=== PATIENT | female | born 1960 | race Caucasian/White ===

== ENCOUNTER 2022-06-19 15:19 | Outpatient (CLI) | payer MEDICAID, SELFPAY ==
--- NOTE | 2022-06-19 14:45 | MR_ITS ---
[address] [address] Phone:?[phone] Fax:?[phone] Referring Physician Information: Milo Coleman M.D. [id number] [facility] [address] Phone:?[phone] Fax:?[phone] Patient:Shawnee Gonzales D.O.B:?1960 Sex:?Female Phone:?[phone] [facility] MRN:?[id number] Exam Date:?06/19/2022 ? EXAM: MRI of the LEFT SHOULDER, without contrast CLINICAL INFORMATION: Female, 61 years old, with shoulder pain INDICATION: Evaluate rotator cuff PRIOR SURGERY: None reported. PLAIN FILMS: None available. COMPARISONS: Shoulder MRI 06/02/2016 TECHNICAL INFORMATION: Using a 1.5T MR scanner and a localizing surface coil: Coronals: PD, T2FS Sagittals: PDFS, T2 Axials: PD, PDFS SEDATION: None CONTRAST: None FINDINGS: Bones: Proximal humerus: Deformity of the greater tuberosity conspicuous than the prior exam, in keeping with prior healed greater tuberosity fracture. Patchy degenerative marrow edema in the humeral head with cystic change in the greater tuberosity, nonspecific. Glenoid: No fracture or marrow edema/pathology. No osseous Bankart lesion. Rotator cuff and muscles/tendons: Supraspinatus: Redemonstrated appearance of supraspinatus tendon tearing with broad-based partial undersurface and articular sided tearing of the mid to posterior distal tendon measuring 18 mm in AP dimension (sagittal series 8 image 8). Tearing appears to follow-up to two thirds tendon thickness, overall similar appearance of the prior exam, with bursal sided fibers appear intact. No muscle belly atrophy. Infraspinatus: Mild to moderate infraspinatus tendinosis without rotator cuff tear or muscle belly atrophy. Teres minor: No tendinopathy, tear or atrophy. Subscapularis: Mild subscapularis tendinosis without rotator cuff tear. Deltoid: No strain or atrophy. Coracoacromial arch: Acromion morphology: The acromion has type II morphology. No discrete subacromial osseous spur or os acromiale. Acromiohumeral space: The acromiohumeral space is mildly narrowed measuring 5 mm. Coracohumeral space: The coracohumeral space is within normal limits. Acromioclavicular joint: Joint: Mild AC joint arthrosis without impinging inferior osteophytosis. Ligaments: Coracoclavicular ligaments are intact. Bursae: Subacromial-subdeltoid: Trace subacromial bursitis. Subcoracoid: No convincing subcoracoid bursal thickening/bursitis. Biceps tendon: The long head of the biceps tendon is present within the bicipital groove. The intra-articular and extra-articular segments are intact without tendinosis, tenosynovitis, or displacement. Glenohumeral joint: Effusion/cyst: Small to moderate-sized glenohumeral joint effusion with synovitis. Articular cartilage: Humeral head: Chondromalacia or chondral signal heterogeneity of the humeral head articular cartilage without distinct chondral defect. Glenoid: No osteochondral abnormalities. Loose bodies: Low signal intensity body within the axillary pouch measuring 10 x 6 mm. Labrum:?Circumferential degenerative fraying and degeneration of the glenoid labrum. No paralabral ganglion cyst is identified. Inferior glenohumeral ligament/axillary pouch:?Intact. The axillary pouch is normal in thickness and signal. No evidence of adhesive capsulitis or capsular injury. IMPRESSION: 1. Partial-thickness intrasubstance and deep surface tearing of the supraspinatus is overall similar in appearance to the prior exam, without full- thickness tear identified. No muscle belly atrophy. 2. Mild to moderate infraspinatus, and mild subscapularis tendinosis without rotator cuff tear. 3. Chronic deformity of the greater tuberosity in keeping with chronic healed fracture. 4. Circumferential degenerative fraying and degeneration of the glenoid labrum. 5. Chondromalacia of the humeral head articular cartilage without distinct chondral defect. Small to moderate-sized glenohumeral joint effusion with synovitis. Intra-articular body within the axillary recess measuring 10 x 6 mm. 6. Mild narrowing of the acromiohumeral space with trace subacromial bursitis. KME Electronically signed on 06/22/2022 7:32:00 PM by Fabiola Underwood M.D.
== END 2022-06-19 15:20 | disposition home or self-care (01) ==
PROVIDERS: Visit Provider Orthopaedic Surgery
DX: M25.512 Pain in left shoulder (principal); M75.102 Unspecified rotator cuff tear or rupture of left shoulder, not specified as traumatic; S92.002A Unspecified fracture of left calcaneus, initial encounter for closed fracture; M94.212 Chondromalacia, left shoulder; M65.112 Other infective (teno)synovitis, left shoulder; M75.52 Bursitis of left shoulder
CPT/HCPCS: 73221

== ENCOUNTER 2023-12-12 19:31 | Emergency (ER) | payer MEDICAID, SELFPAY ==
[2023-12-12 19:37] VITALS: BP 180/94; PULSE 94; RESP 18; TEMP 36.2; O2SAT 99; BMI 25.6
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
--- NOTE | 2023-12-12 20:20 | US_ITS ---
Patient: WINDY PEREZ Facility:?[facility] Patient ID:?[id number] Site Patient ID:?[id number]. Site :?1960 Study:?US-Extremity Left LEV-12/12/2023 9:41:43 PM Ordering Physician:Jun Final Report: INDICATION: Swelling and pain x3 weeks. Open wound posterior left calf. TECHNIQUE: Ultrasound venous duplex lower left extremity. Compression venous exam was performed using luna-scale, color Doppler, and spectral Doppler analysis. COMPARISON: None. FINDINGS: Deep veins: Sonographic imaging demonstrates the left common femoral, deep femoral, superficial femoral, popliteal, posterior tibial, peroneal and the contralateral right common femoral veins to be fully compressible with normal color Doppler blood flow. Superficial veins: Greater saphenous vein is fully compressible. No popliteal cyst. Mild subcutaneous edema in the calf in the area of the patient`s wound. IMPRESSION: No deep venous thrombosis in the evaluated veins of the left lower extremity. Dictated by Jaspal Antoine MD @ 12/12/2023 9:59:31 PM Signed by:?Jaspal Antoine MD @12/12/2023 9:59:31 PM (Electronic Signature)
[2023-12-12 20:42] LABS: Basophils Absolute Auto 0.04 K/uL (0.00-0.30); Basophils Percent Auto 0.6 % (0.0-3.0); Eosinophils Absolute Auto 0.33 K/uL (0.00-0.50); Eosinophils Percent Auto 4.7 % (0.0-7.0); Hematocrit 45.2 % (33.0-51.0); Hemoglobin* 15.3 gm/dL (12.0-16.0); Immature Granulocytes Abs Auto 0.01 K/uL (0.00-0.30); Immature Granulocytes Pct Auto 0.1 %; Lymphocytes Absolute Auto 1.84 K/uL (0.90-2.90); Lymphocytes Percent Auto 26.1 % (20-44); Mean Corpuscular HGB Conc 34 gm/dL (32-36); Mean Corpuscular Hemoglobin 32 pg (26-34); Mean Corpuscular Volume 93 fL (80-100); Monocytes Percent Auto 9.2 % (0.0-11.0); Neutrophils Absolute Auto 4.17 K/uL (1.7-7.0); Neutrophils Percent Auto 59.3 % (42.0-72.0); Platelet Count* 360 K/uL (140-440); RDW Coefficient of Variation % 12.4 % (11.5-15.5); Red Blood Count 4.85 m/uL (4.00-5.20); White Blood Count* 7.04 K/uL (4.50-11.00)
[2023-12-12 20:45] LABS: Slide Review Reflex No
--- NOTE | 2023-12-13 14:09 | ED.NURSE ---
family brianae called, magic mouthwash is not available thru them. pt was called. pt may call back, if so, we can direct to souleymane
== END 2023-12-12 23:31 | disposition home or self-care (01) ==
PROVIDERS: Emergency Provider Family Medicine
DX: L08.9 Local infection of the skin and subcutaneous tissue, unspecified (principal); S00.512A Abrasion of oral cavity, initial encounter; R60.0 Localized edema
CPT/HCPCS: 36415; 85025; 87070; 87186; 93971; 99284

== ENCOUNTER 2024-10-04 09:01 | Outpatient (CLI) | payer MEDICAID, SELFPAY | END 2024-10-04 09:02 | disposition home or self-care (01) | PROVIDERS: PCP Physician Assistant; Visit Provider Nurse Practitioner Family | DX: I87.312 Chronic venous hypertension (idiopathic) with ulcer of left lower extremity (principal); L97.222 Non-pressure chronic ulcer of left calf with fat layer exposed; R73.03 Prediabetes; F17.200 Nicotine dependence, unspecified, uncomplicated; F10.20 Alcohol dependence, uncomplicated; Z59.87 Material hardship due to limited financial resources, not elsewhere classified | CPT/HCPCS: 97597; G0463 ==

== ENCOUNTER 2024-10-06 14:38 | Outpatient (CLI) | payer MEDICAID, SELFPAY | END 2024-10-06 14:39 | disposition home or self-care (01) | LOC: WOUND 14:38 | PROVIDERS: PCP Physician Assistant; Visit Provider Nurse Practitioner Family | DX: I87.312 Chronic venous hypertension (idiopathic) with ulcer of left lower extremity (principal); L97.222 Non-pressure chronic ulcer of left calf with fat layer exposed | CPT/HCPCS: 29581 ==

== ENCOUNTER 2024-10-09 12:52 | Outpatient (CLI) | payer MEDICAID, SELFPAY | END 2024-10-09 12:53 | disposition home or self-care (01) | LOC: WOUND 12:52 | PROVIDERS: PCP Physician Assistant; Visit Provider Nurse Practitioner Family | DX: I87.312 Chronic venous hypertension (idiopathic) with ulcer of left lower extremity (principal); L97.222 Non-pressure chronic ulcer of left calf with fat layer exposed | CPT/HCPCS: 29581 ==

== ENCOUNTER 2024-10-12 14:01 | Outpatient (CLI) | payer MEDICAID, SELFPAY | END 2024-10-12 14:02 | disposition home or self-care (01) | LOC: WOUND 14:01 | PROVIDERS: Visit Provider Nurse Practitioner Family | DX: I87.312 Chronic venous hypertension (idiopathic) with ulcer of left lower extremity (principal); L97.222 Non-pressure chronic ulcer of left calf with fat layer exposed; R73.03 Prediabetes; F17.200 Nicotine dependence, unspecified, uncomplicated | CPT/HCPCS: G0463 ==

== ENCOUNTER 2024-10-18 09:27 | Outpatient (CLI) | payer MEDICAID, SELFPAY | END 2024-10-18 09:28 | disposition home or self-care (01) | LOC: WOUND 09:27 | PROVIDERS: Visit Provider Nurse Practitioner Family | DX: I87.312 Chronic venous hypertension (idiopathic) with ulcer of left lower extremity (principal); L97.222 Non-pressure chronic ulcer of left calf with fat layer exposed; R73.03 Prediabetes; F10.21 Alcohol dependence, in remission | CPT/HCPCS: G0463 ==

== ENCOUNTER 2024-10-26 13:27 | Outpatient (CLI) | payer MEDICAID, SELFPAY | END 2024-10-26 13:28 | disposition home or self-care (01) | LOC: WOUND 13:27 | PROVIDERS: Visit Provider Nurse Practitioner Family | DX: I87.312 Chronic venous hypertension (idiopathic) with ulcer of left lower extremity (principal); L97.222 Non-pressure chronic ulcer of left calf with fat layer exposed; R73.03 Prediabetes | CPT/HCPCS: 11042 ==

== ENCOUNTER 2024-11-08 09:30 | Outpatient (CLI) | payer MEDICAID, SELFPAY | END 2024-11-08 09:31 | disposition home or self-care (01) | LOC: WOUND 09:30 | PROVIDERS: PCP Physician Assistant; Visit Provider Nurse Practitioner Family | DX: I87.312 Chronic venous hypertension (idiopathic) with ulcer of left lower extremity (principal); L97.222 Non-pressure chronic ulcer of left calf with fat layer exposed; R73.03 Prediabetes | CPT/HCPCS: 29581 ==

== ENCOUNTER 2024-11-15 09:09 | Outpatient (CLI) | payer MEDICAID, SELFPAY | END 2024-11-15 09:10 | disposition home or self-care (01) | LOC: WOUND 09:09 | PROVIDERS: PCP Physician Assistant; Visit Provider Nurse Practitioner Family | DX: I87.312 Chronic venous hypertension (idiopathic) with ulcer of left lower extremity (principal); L97.222 Non-pressure chronic ulcer of left calf with fat layer exposed | CPT/HCPCS: 97597 ==

== ENCOUNTER 2024-11-22 09:32 | Outpatient (CLI) | payer MEDICAID, SELFPAY | END 2024-11-22 09:33 | disposition home or self-care (01) | LOC: WOUND 09:32 | PROVIDERS: PCP Physician Assistant; Visit Provider Nurse Practitioner Family | DX: I87.312 Chronic venous hypertension (idiopathic) with ulcer of left lower extremity (principal); L97.222 Non-pressure chronic ulcer of left calf with fat layer exposed; R73.03 Prediabetes; F17.200 Nicotine dependence, unspecified, uncomplicated | CPT/HCPCS: 97597 ==

== ENCOUNTER 2025-01-10 13:27 | Outpatient (CLI) | payer MEDICAID, SELFPAY ==
[2025-01-10 14:45] LABS: Basophils Percent Auto 0.4 % (0.0-3.0); Eosinophils Percent Auto 1.2 % (0.0-7.0); Hematocrit 44.7 % (33.0-51.0); Immature Granulocytes Pct Auto 0.2 %; Lymphocytes Percent Auto 17.4 % (20-44); Mean Corpuscular HGB Conc 34 gm/dL (32-36); Mean Corpuscular Hemoglobin 32 pg (26-34); Mean Corpuscular Volume 95 fL (80-100); Monocytes Percent Auto 7.3 % (0.0-11.0); Neutrophils Percent Auto 73.5 % (42.0-72.0); Platelet Count* 537 K/uL (140-440); RDW Coefficient of Variation % 12.5 % (11.5-15.5); Red Blood Count 4.73 m/uL (4.00-5.20); White Blood Count* 11.29 K/uL (4.50-11.00)
[2025-01-10 14:52] LABS: Slide Review Reflex No
[2025-01-10 15:05] LABS: C Reactive Protein* 4.3 mg/dL (0.5-1.0)
== END 2025-01-10 13:28 | disposition home or self-care (01) ==
LOC: WOUND 13:27
PROVIDERS: PCP Physician Assistant; Visit Provider Surgery
DX: L03.116 Cellulitis of left lower limb (principal); I87.312 Chronic venous hypertension (idiopathic) with ulcer of left lower extremity; L97.222 Non-pressure chronic ulcer of left calf with fat layer exposed; R73.03 Prediabetes; F17.200 Nicotine dependence, unspecified, uncomplicated
CPT/HCPCS: 36415; 85025; 86140; G0463

== ENCOUNTER 2025-01-17 12:22 | Outpatient (CLI) | payer MEDICAID, SELFPAY | END 2025-01-17 12:23 | disposition home or self-care (01) | LOC: WOUND 12:22 | PROVIDERS: PCP Physician Assistant; Visit Provider Surgery | DX: L03.116 Cellulitis of left lower limb (principal); I87.312 Chronic venous hypertension (idiopathic) with ulcer of left lower extremity; L97.828 Non-pressure chronic ulcer of other part of left lower leg with other specified severity; R73.03 Prediabetes; F17.200 Nicotine dependence, unspecified, uncomplicated; F10.21 Alcohol dependence, in remission | CPT/HCPCS: 87070; G0463 ==

== ENCOUNTER 2025-01-17 14:25 | Inpatient (IN) | payer MEDICAID, SELFPAY ==
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
[2025-01-17] MEDS: ACETAMINOPHEN 325 MG TABLET 975 MG PO (16:42)
[2025-01-17] MEDS: PIPERACILLIN/TAZOBACTAM 3.375 GM in 0.9 % SODIUM CHLORIDE Mini-bag 100 ML IVPB ×2 (16:43→22:31)
[2025-01-17 16:56] VITALS: BP 166/89; PULSE 95; RESP 20; TEMP 36.6; O2SAT 96
[2025-01-17] MEDS: VANCOMYCIN 1.5 GM/300 ML 1.5 GM/300 ML PIGGYBACK IVPB (17:57)
[2025-01-17] MEDS: 0.9 % SODIUM CHLORIDE 250 ml IV (18:01)
[2025-01-17 19:00] VITALS: BP 179/96; PULSE 109; RESP 20; TEMP 36.7; O2SAT 94
--- NOTE | 2025-01-17 19:41 | PC.NURSE ---
End of shift [id number] - Pt arrived from wound clinic at approximately 1450. Tolerating RA and regular diet/fluids. Reported pain in LLE rated as 8/10, noted to moan in pain and be restless. Given medication per MAR with pt behavior indicating relief. LLE noted to be edematous, chronic wound area observed by RN and redness outlined. Pt observed to sleep during majority of shift.
[2025-01-17] MEDS: IBUPROFEN 400 MG TABLET PO (21:19)
[2025-01-17 22:35] VITALS: BP 174/97; PULSE 100; RESP 18; TEMP 36.7; O2SAT 94
[2025-01-18] VITALS (9 sets, daily range): BP systolic 142–189; BP diastolic 85–102; PULSE 72–93; RESP 14–18; TEMP 36.4–36.8; O2SAT 93–98; BMI 26.9
[2025-01-18] MEDS: PIPERACILLIN/TAZOBACTAM 3.375 GM in 0.9 % SODIUM CHLORIDE Mini-bag 100 ML IVPB ×4 (04:55→23:32)
--- NOTE | 2025-01-18 05:06 | PC.NURSE ---
Shift note: Pt alert and oriented. Vitally stable. At 2300, pt complained of pain of 8/10. Ibuprofen given which was effective. Dressing appeared clean and dry. The induration and redness are within the marked area. Left leg is extremely tender. No fever recorded. Due treatment given as ordered.
[2025-01-18] MEDS: VANCOMYCIN 1 GM/200 ML 1 GM/200 ML PIGGYBACK IVPB ×2 (05:38→19:06)
[2025-01-18 08:32] LABS: Basophils Absolute Auto 0.05 K/uL (0.00-0.30); Basophils Percent Auto 0.7 % (0.0-3.0); Eosinophils Absolute Auto 0.27 K/uL (0.00-0.50); Eosinophils Percent Auto 3.7 % (0.0-7.0); Hematocrit 42.2 % (33.0-51.0); Hemoglobin* 14.2 gm/dL (12.0-16.0); Immature Granulocytes Abs Auto 0.02 K/uL (0.00-0.30); Immature Granulocytes Pct Auto 0.3 %; Lymphocytes Absolute Auto 1.63 K/uL (0.90-2.90); Lymphocytes Percent Auto 22.6 % (20-44); Mean Corpuscular HGB Conc 34 gm/dL (32-36); Mean Corpuscular Hemoglobin 32 pg (26-34); Mean Corpuscular Volume 96 fL (80-100); Monocytes Percent Auto 10.7 % (0.0-11.0); Neutrophils Absolute Auto 4.48 K/uL (1.7-7.0); Platelet Count* 434 K/uL (140-440); RDW Coefficient of Variation % 12.6 % (11.5-15.5); Red Blood Count 4.41 m/uL (4.00-5.20); White Blood Count* 7.22 K/uL (4.50-11.00)
[2025-01-18 08:34] LABS: Slide Review Reflex No
[2025-01-18 08:44] LABS: Albumin* 3.3 g/dL (3.3-5.0); Chloride* 105 mmol/L (96-114); Sodium* 137 mmol/L (135-149)
[2025-01-18 08:45] LABS: Potassium* 3.8 mmol/L (3.6-5.1)
[2025-01-18 08:47] LABS: Alanine Aminotransferase* 111 U/L (4-35); Alkaline Phosphatase* 203 U/L (40-150); Anion Gap 5 mEq/L (7-15); Aspartate Amino Transferase* 216 U/L (12-35); Bilirubin Total* 0.8 mg/dL (0.1-1.5); Blood Urea Nitrogen* 14 mg/dL (7-30); Carbon Dioxide* 27 mmol/L (20-32); Creatinine* 0.6 mg/dL (0.5-1.5); Est. Creatinine Clearance* 45.54; Estimated Glomerular Filt Rate 101 ml/min; Total Protein* 6.2 g/dL (6.0-8.3)
[2025-01-18 08:48] LABS: Calcium* 8.3 mg/dL (8.4-10.6); Glucose* 111 mg/dL (60-115); Magnesium* 1.8 mg/dL (1.5-2.6)
[2025-01-18 08:50] LABS: C Reactive Protein* 7.3 mg/dL (0.5-1.0)
[2025-01-18] MEDS: ACETAMINOPHEN 325 MG TABLET 975 MG PO ×2 (08:53→15:14)
--- NOTE | 2025-01-18 11:18 | PM.GSPN ---
Subjective Subjective Date Seen: 01/18/25 Interval history: Thea is still having pain in her leg. No other updates. Exam Narrative: Exam Narrative: General: NAD Extremities: left foot less swollen today. Erythema receded from yesterday's marking. skin is less macerated. Const: Vital Signs, click to edit/add: Vital Signs - 24 hr 01/17/25 16:56 01/17/25 16:56 01/17/25 19:00 Temperature 97.8 F 98.1 F Pulse Rate [Pulse Oximeter] 95 109 H Respiratory Rate 20 20 20 Blood Pressure [Le ft Arm] 166/89 H 179/96 H Pulse Oximetry 96 96 94 Oxygen Delivery Me thod Room Air Room Air Room Air 01/17/25 22:35 01/17/25 22:35 01/17/25 22:35 Temperature 98.1 F Pulse Rate [Pulse Oximeter] 100 100 Respiratory Rate 18 18 18 Blood Pressure [Le ft Arm] 174/97 H Pulse Oximetry 94 94 Oxygen Delivery Me thod Room Air Room Air 01/18/25 02:50 01/18/25 08:27 01/18/25 08:30 Temperature 97.9 F 98.3 F Pulse Rate [Pulse Oximeter] 93 83 Respiratory Rate 18 14 Blood Pressure [Le ft Arm] 161/100 H 164/96 H Pulse Oximetry 93 95 95 Oxygen Delivery Me thod Room Air Room Air Room Air Labs/Imaging Labs Labs: Wound culture from 01/17 pending Progress Note:A&P Assessment and plan (1) Wound of left lower extremity: Status: Chronic (2) Alcohol dependence in remission: Status: Chronic (3) Tobacco use disorder: Status: Chronic (4) Left leg cellulitis: Status: Acute Plan The patient is a 64-year-old female with a venous stasis wound on her left posterior leg and worsening cellulitis. She has improved after admission overnight with IV antibiotics. She has significant pain with dressing changes. She feels that the dressing sticks to her wounds and therefore she had previously been soaking her leg in a bucket of tap water. She has been instructed not to do this any longer and also not to use any topical medications other than what is prescribed to her or directed by the wound clinic. Xeroform gauze has been applied to her leg which is a non adherent dressing. She still has significant pain with removing the Xeroform even though it is not stuck to her leg. I think this is still the best dressing for her as her wound already looks better today than yesterday - the skin is less macerated and the dressing did not stick. I recommend that she use compression. The Tubigrip has already helped significantly. She continue with this when she is in the hospital and after discharge. Dressing changes only need to be done daily. If she tolerates, can gently cleanse her leg with soft gauze and wound cleanzer to loosen old skin and exudate. Avoid putting abd or kerlex on skin as this seems to stick intolerably to her skin. As her infection improves, this should decrease her pain. Continue IV antibiotics for now - switch to Oral once either wound culture results back. She may follow up in wound center next week.
[2025-01-18] MEDS: IBUPROFEN 400 MG TABLET PO (11:38)
[2025-01-18] MEDS: 0.9 % SODIUM CHLORIDE 250 ml IV ×2 (11:43→17:41)
[2025-01-18] MEDS: SODIUM CHLORIDE 0.9 % (FLUSH) 10 ML SYRINGE 5 ML IVF ×2 (11:44→23:33)
--- NOTE | 2025-01-18 15:37 | PC.NURSE ---
EOS: Pt. is AOx4. Pleasant and cooperative. Moves independently. Afebrile. Continent of bowel throughout shift reports recent events of bladder incontinence. Briefs and commode bedside for pt. convenience. Denies SOB, RN recorded elevated BP reading. MD notified and no new orders placed at this time. Pt. reported pain in LLE rated from 2-5/10 and aggravated by dressing change. Provided pain medication per MAR, and provided emotional support and distraction. Pt. verbalized improved comfort. At end of shift, RN observed Pt. soaking L heel in emesis basin filled w/ tap water. RN provided education on importance on keeping wound and dressing CDI and using call light for assistance with discomfort. Pt. verbalized understanding. Pt. appears to be resting in bed with call light within reach.
--- NOTE | 2025-01-18 16:23 | P.IMPN_ITS ---
Assessment and Plan Assessment and plan (1) Left leg cellulitis: Problem comment: - Admit for treatment of cellulitis - Since she has been soaking leg/wound in tap water, pseudomonas is a possibility. She also has a h/o MRSA. Start zosyn and vanco to cover for these. Elevate leg. Consult wound care. Status: Acute (2) Wound of left lower extremity: Problem comment: Continue wound dressings as per wound care, but increase frequency to BID and use sterile saline to soak if needed for adherence. I counseled patient not to use tap water and to avoid soaking entire lower leg in water. Status: Chronic (3) Tobacco use disorder: Problem comment: Declined nicotine replacment. Recommend smoking cessation Status: Chronic (4) Discharge planning issues: Problem comment: Patient has unstable housing though she in indicates right now she has a place to live. She also has transportation issues complicating her wound care. Continue to address these issues prior to discharge Status: Acute Plan Continue in hospital for IV antibiotics and wound care pending clinical improvement. Would like to see culture results to guide ongoing antibiotic therapy. Continue to address outpatient barriers to ongoing wound care. Total Time Spent Total Time Spent: Total time spent today is 40 minutes in reviewing outside records, coordination of care, discussion with patient other providers wound care management and disposition. Subjective Date Seen: 01/18/25 Interval history: Thea Gonzales is a 64 year old female with a h/o alcohol dependence, tobacco use disorder, dependent personality, PTSD, chronic pain syndrome and chronic LLE wound who presents as a direct admission from our wound care clinic for LLE cellulitis. She tells me this has been going on for a year and a half. That is when she developed a wound on her posterior left calf. Since then she has been fired from multiple wound care clinics. She has had cellulitis in her leg at least 3 different times in the past year and a half. Most recently, she started having increased pain, swelling, and erythema about a week and a half ago for which she went to the ER at [place] (her mother drove her there). She received oral antibiotics for LLE cellulitis. She followed up with her PCP, Dr. Pulido, last week who extended the antibiotic course by a week. She was seen in wound care today with noted worsening of cellulitis when compared with 01/10/25. She has been taking acetaminophen and ibuprofen, which help with the pain. She tries to elevate her leg sometimes at home, but not much because it hurts. She denies fever or chills. She has been doing dressing changes at home every 48 hours. She has been soaking her leg and bandages in tap water in a bucket. She has complex social situation with unstable housing and difficulty with transportation. 01/18/2025: Patient reports significant ongoing leg pain but otherwise doing well. No new concerns today. Exam Narrative: Exam Narrative: She is alert and appears in no distress. Breathing is unlabored. Legs examined. Right leg is unremarkable. Left leg is markedly improved with her erythema. The ulcers are relatively stable. Still having prominent drainage from her leg. Const: Vital Signs, click to edit/add: Vital Signs - 24 hr 01/17/25 16:56 01/17/25 16:56 01/17/25 19:00 Temperature 97.8 F 98.1 F Pulse Rate [Pulse Oximeter] 95 109 H Respiratory Rate 20 20 20 Blood Pressure [Le ft Arm] 166/89 H 179/96 H Pulse Oximetry 96 96 94 Oxygen Delivery Me thod Room Air Room Air Room Air 01/17/25 22:35 01/17/25 22:35 01/17/25 22:35 Temperature 98.1 F Pulse Rate [Pulse Oximeter] 100 100 Respiratory Rate 18 18 18 Blood Pressure [Le ft Arm] 174/97 H Pulse Oximetry 94 94 Oxygen Delivery Nm thod Room Air Room Air 01/18/25 02:50 01/18/25 08:27 01/18/25 08:30 Temperature 97.9 F 98.3 F Pulse Rate [Pulse Oximeter] 93 83 Respiratory Rate 18 14 Blood Pressure [Le ft Arm] 161/100 H 164/96 H Pulse Oximetry 93 95 95 Oxygen Delivery Me thod Room Air Room Air Room Air 01/18/25 11:29 01/18/25 15:00 01/18/25 15:00 Temperature 98.3 F Pulse Rate [Pulse Oximeter] 76 80 Respiratory Rate 14 16 16 Blood Pressure [Le ft Arm] 185/102 H Pulse Oximetry 97 98 Oxygen Delivery Me thod Room Air 01/18/25 15:56 Temperature 98.2 F Pulse Rate [Pulse Oximeter] 80 Respiratory Rate 16 Blood Pressure [Le ft Arm] 189/100 H Pulse Oximetry 98 Oxygen Delivery Nm thod Documenting provider has reviewed patient's vital signs: yes Labs Labs: Laboratory Results - last 24 hr 01/18/25 08:24 WBC 7.22 RBC 4.41 Hgb 14.2 Hct 42.2 MCV 96 MCH 32 MCHC 34 RDW Coeff of Sabino 12.6 Plt Count 434 Neut % (Auto) 62.0 Lymph % (Auto) 22.6 [place] % (Auto) 10.7 Eos % (Auto) 3.7 Baso % (Auto) 0.7 Neut # (Auto) 4.48 Lymph # (Auto) 1.63 [place] # (Auto) 0.80 Eos # (Auto) 0.27 Baso # (Auto) 0.05 Abs Immat Gran (auto) 0.02 Imm/Tot Granulo (auto) 0.3 Sodium 137 Potassium 3.8 Chloride 105 Carbon Dioxide 27 Anion Gap 5 L BUN 14 Creatinine 0.6 Estimated Creat Clear 45.54 Estimated GFR 101 Glucose 111 Calcium 8.3 L Magnesium 1.8 Total Bilirubin 0.8 AST 216 H ALT 111 H Alkaline Phosphatase 203 H C-Reactive Protein 7.3 H Total Protein 6.2 Albumin 3.3
--- NOTE | 2025-01-18 18:43 | PC.NURSE ---
Pt doing well. Hypertensive, provider aware. LLE is elevated at this time, pt tolerating well. Pt states pain to LLE with movement. Tolerating regular diet. Resting well in bed at this time.
[2025-01-19] VITALS (8 sets, daily range): BP systolic 155–201; BP diastolic 91–112; PULSE 74–90; RESP 16–20; TEMP 36.2–36.8; O2SAT 95–97
[2025-01-19] MEDS: ACETAMINOPHEN 325 MG TABLET 975 MG PO ×2 (03:34→22:04)
[2025-01-19] MEDS: PIPERACILLIN/TAZOBACTAM 3.375 GM in 0.9 % SODIUM CHLORIDE Mini-bag 100 ML IVPB ×4 (05:39→22:48)
[2025-01-19] MEDS: VANCOMYCIN 1 GM/200 ML 1 GM/200 ML PIGGYBACK IVPB ×2 (06:22→18:17)
--- NOTE | 2025-01-19 06:47 | PC.NURSE ---
Pt pleasant, alert and oriented. Hypertensive throughout shift, otherwise VSS. Reddened area appears to be receding from outline. LLE elevated, edema noted. Pt stated pain rated 6/10, prn medication given, pt stated improvement. Pt stated left heel feels dry and painful, upon assessing pt had soaked heel in small basin in room, notified (Neftali) and pt educated. Lotion provided for heel. Pt utilizes commode independently, bears weight as tolerated. Pt in bed, appears to be resting, call light within reach.
[2025-01-19 07:15] LABS: Basophils Absolute Auto 0.07 K/uL (0.00-0.30); Basophils Percent Auto 1.1 % (0.0-3.0); Eosinophils Absolute Auto 0.29 K/uL (0.00-0.50); Eosinophils Percent Auto 4.5 % (0.0-7.0); Hematocrit 41.8 % (33.0-51.0); Immature Granulocytes Abs Auto 0.02 K/uL (0.00-0.30); Immature Granulocytes Pct Auto 0.3 %; Lymphocytes Absolute Auto 1.52 K/uL (0.90-2.90); Lymphocytes Percent Auto 23.5 % (20-44); Mean Corpuscular HGB Conc 34 gm/dL (32-36); Mean Corpuscular Hemoglobin 33 pg (26-34); Mean Corpuscular Volume 97 fL (80-100); Monocytes Percent Auto 10.4 % (0.0-11.0); Neutrophils Absolute Auto 3.89 K/uL (1.7-7.0); Neutrophils Percent Auto 60.2 % (42.0-72.0); Platelet Count* 453 K/uL (140-440); RDW Coefficient of Variation % 12.9 % (11.5-15.5); Red Blood Count 4.31 m/uL (4.00-5.20); White Blood Count* 6.46 K/uL (4.50-11.00)
[2025-01-19 07:21] LABS: Slide Review Reflex No
[2025-01-19] MEDS: SODIUM CHLORIDE 0.9 % (FLUSH) 10 ML SYRINGE 5 ML IVF ×2 (07:45→22:04)
[2025-01-19 07:47] LABS: C Reactive Protein* 5.2 mg/dL (0.5-1.0)
[2025-01-19] MEDS: IBUPROFEN 400 MG TABLET PO ×2 (09:58→20:17)
[2025-01-19] MEDS: 0.9 % SODIUM CHLORIDE 250 ml IV (12:07)
--- NOTE | 2025-01-19 12:17 | PM.IMPN1 ---
Assessment and Plan Assessment and plan (1) Left leg cellulitis: Problem comment: - Admit for treatment of cellulitis - Since she has been soaking leg/wound in tap water, pseudomonas is a possibility. She also has a h/o MRSA. Start zosyn and vanco to cover for these. Elevate leg. Consult wound care. Status: Acute (2) Wound of left lower extremity: Problem comment: Continue daily wound dressings as per wound care and use sterile saline to soak if needed for adherence. I counseled patient not to use tap water and to avoid soaking entire lower leg in water. Status: Chronic (3) Tobacco use disorder: Problem comment: Declined nicotine replacment. Recommend smoking cessation Status: Chronic (4) Discharge planning issues: Problem comment: Patient has unstable housing though she in indicates right now she has a place to live. She also has transportation issues complicating her wound care. Continue to address these issues prior to discharge Status: Acute (5) Hypertension: Problem comment: Patient has history of hypertension. She has been previously treated with blood pressure medicines in the past. She tells me she has recently taken L arginine for treatment of blood pressure. I recommended that we use more standard blood pressure medications because her elevated blood pressure is likely to cause complications in the long-term. She declines any blood pressure treatment today Status: Acute Plan Continue in hospital for IV antibiotics and wound care. Awaiting wound cultures. Total Time Spent Total Time Spent: Total time spent today is 35 minutes in coordination of care, discussion with patient and other providers about management of wounds, pain and blood pressure. Subjective Date Seen: 01/19/25 Interval history: Thea Gonzales is a 64 year old female with a h/o alcohol dependence, tobacco use disorder, dependent personality, PTSD, chronic pain syndrome and chronic LLE wound who presents as a direct admission from our wound care clinic for LLE cellulitis. She tells me this has been going on for a year and a half. That is when she developed a wound on her posterior left calf. Since then she has been fired from multiple wound care clinics. She has had cellulitis in her leg at least 3 different times in the past year and a half. Most recently, she started having increased pain, swelling, and erythema about a week and a half ago for which she went to the ER at [place] (her mother drove her there). She received oral antibiotics for LLE cellulitis. She followed up with her PCP, Dr. Pulido, last week who extended the antibiotic course by a week. She was seen in wound care today with noted worsening of cellulitis when compared with 01/10/25. She has been taking acetaminophen and ibuprofen, which help with the pain. She tries to elevate her leg sometimes at home, but not much because it hurts. She denies fever or chills. She has been doing dressing changes at home every 48 hours. She has been soaking her leg and bandages in tap water in a bucket. She has complex social situation with unstable housing and difficulty with transportation. 01/18/2025: Patient reports significant ongoing leg pain but otherwise doing well. No new concerns today. 01/19/2025: Patient reports ongoing significant left leg pain. Worse with dressing changes. No fever. She has ongoing marked elevation of blood pressure. She carries a diagnosis of hypertension. She tells me that she is taking L arginine for blood pressure control. I asked her if she would allow me to initiate a more standard blood pressure medication and she said no. Exam Narrative: Exam Narrative: Elevated blood pressures as noted. She is alert and appears in no distress. Breathing is unlabored. Left lower extremities examined. The erythema continues to improve. She still has moderate amount of drainage in scale on her skin up. Ulcer and the back of her calf is unchanged. Still has marked tenderness with any touching of the skin of her legs. Const: Vital Signs, click to edit/add: Vital Signs - 24 hr 01/18/25 15:00 01/18/25 15:00 01/18/25 15:56 Temperature 98.2 F Pulse Rate [Pulse Oximeter] 80 80 Respiratory Rate 16 16 16 Blood Pressure [Le ft Arm] 189/100 H Pulse Oximetry 98 98 Oxygen Delivery Me thod Room Air 01/18/25 20:20 01/18/25 23:00 01/18/25 23:00 Temperature 98.1 F Pulse Rate [Pulse Oximeter] 72 72 Respiratory Rate 16 16 Blood Pressure [Le ft Arm] 142/85 H Pulse Oximetry 94 95 Oxygen Delivery Me thod Room Air Room Air 01/19/25 03:20 01/19/25 07:00 01/19/25 07:00 Temperature 97.6 F 97.1 F L Pulse Rate [Pulse Oximeter] 77 75 Respiratory Rate 16 16 16 Blood Pressure [Le ft Arm] 200/112 H 187/106 H Pulse Oximetry 97 95 97 Oxygen Delivery Me thod Room Air Room Air Room Air 01/19/25 12:10 Temperature 98.3 F Pulse Rate [Pulse Oximeter] 90 Respiratory Rate 18 Blood Pressure [Le ft Arm] 179/97 H Pulse Oximetry 95 Oxygen Delivery Me thod Room Air Documenting provider has reviewed patient's vital signs: yes Labs Labs: Laboratory Results - last 24 hr 01/19/25 05:53 WBC 6.46 RBC 4.31 Hgb 14.0 Hct 41.8 MCV 97 MCH 33 MCHC 34 RDW Coeff of Sabino 12.9 Plt Count 453 H Neut % (Auto) 60.2 Lymph % (Auto) 23.5 [place] % (Auto) 10.4 Eos % (Auto) 4.5 Baso % (Auto) 1.1 Neut # (Auto) 3.89 Lymph # (Auto) 1.52 [place] # (Auto) 0.70 Eos # (Auto) 0.29 Baso # (Auto) 0.07 Abs Immat Gran (auto) 0.02 Imm/Tot Granulo (auto) 0.3 C-Reactive Protein 5.2 H
--- NOTE | 2025-01-19 12:29 | PC.SOCIAL ---
Discharge planning: farmworker field crop met with pt today to discuss housing concerns/resources. Pt states that she lives in a trailer in [facility] and states that the mud grinder could ask her to leave at any time because they are remodeling the park and bringing in brand new trailer homes. Pt states that she cannot afford to purchase a brand new trailer and that the only reason she has the trailer that she has now is because her mother bought it for her because she was homeless and living on someone's porch. Pt states that she plans to seek legal nurse consultant and rosemary the mud grinder of the trailer park where she lives for not disclosing to her before she moved into her trailer that she might have to leave at any time due to new trailer homes being brought in. farmworker field crop provided supportive listening for the pt, but there were no social work needs identified. Social work to follow-up as needed.
--- NOTE | 2025-01-19 18:29 | PC.NURSE ---
Patient alert and oriented upon initial assessment. Chronic hypertension. Patient refusing treatment for this through the day. After some education she became open to a discussion of initiating medication for hypertension to take once discharged. Irritable and agitated at times.?At risk for continuing treatment non-compliance per medical history and presentation. Checking frequently for comfort while they stay with us?and are receiving IV antibiotics. Left lower leg is red but receding in coloration. Wounds in this area. Small amounts of serosanguineous discharge. No smell. Twice a day wound changes. Chronic urinary incontinence.
[2025-01-20 03:00] VITALS: BP 175/96; PULSE 63; RESP 16; TEMP 37; O2SAT 94
[2025-01-20] MEDS: ACETAMINOPHEN 325 MG TABLET 975 MG PO ×2 (04:20→12:58)
[2025-01-20] MEDS: PIPERACILLIN/TAZOBACTAM 3.375 GM in 0.9 % SODIUM CHLORIDE Mini-bag 100 ML IVPB (05:43)
[2025-01-20] MEDS: VANCOMYCIN 1 GM/200 ML 1 GM/200 ML PIGGYBACK IVPB (06:27)
[2025-01-20 06:47] LABS: Basophils Absolute Auto 0.07 K/uL (0.00-0.30); Basophils Percent Auto 1.2 % (0.0-3.0); Eosinophils Absolute Auto 0.39 K/uL (0.00-0.50); Eosinophils Percent Auto 6.4 % (0.0-7.0); Hematocrit 41.6 % (33.0-51.0); Hemoglobin* 13.8 gm/dL (12.0-16.0); Immature Granulocytes Abs Auto 0.01 K/uL (0.00-0.30); Immature Granulocytes Pct Auto 0.2 %; Lymphocytes Absolute Auto 1.77 K/uL (0.90-2.90); Lymphocytes Percent Auto 29.2 % (20-44); Mean Corpuscular HGB Conc 33 gm/dL (32-36); Mean Corpuscular Hemoglobin 32 pg (26-34); Mean Corpuscular Volume 97 fL (80-100); Monocytes Percent Auto 10.7 % (0.0-11.0); Neutrophils Absolute Auto 3.17 K/uL (1.7-7.0); Neutrophils Percent Auto 52.3 % (42.0-72.0); Platelet Count* 470 K/uL (140-440); RDW Coefficient of Variation % 12.7 % (11.5-15.5); Red Blood Count 4.31 m/uL (4.00-5.20); White Blood Count* 6.06 K/uL (4.50-11.00)
[2025-01-20 07:00] VITALS: BP 165/100; PULSE 96; RESP 14; TEMP 36.5; O2SAT 96
[2025-01-20 07:00] LABS: Slide Review Reflex No
[2025-01-20 07:08] LABS: C Reactive Protein* 3.2 mg/dL (0.5-1.0)
--- NOTE | 2025-01-20 07:23 | PC.NURSE ---
Pt pleasant, alert and oriented. Hypertensive throughout shift, otherwise VSS. Reddened area appears to be receding from outline. LLE elevated, edema noted. Pt stated pain rated 6/10, prn medication given, pt stated improvement. Dressing changed per orders, premedicated with prn. Pt utilizes commode independently, bears weight as tolerated. Pt in bed, appears to be resting, call light within reach.?
[2025-01-20 07:43] LABS: Albumin* 3.3 g/dL (3.3-5.0)
[2025-01-20 07:46] LABS: Alanine Aminotransferase* 137 U/L (4-35); Alkaline Phosphatase* 234 U/L (40-150); Aspartate Amino Transferase* 129 U/L (12-35); Bilirubin Direct* 0.2 mg/dL (0.0-0.5); Bilirubin Total* 0.4 mg/dL (0.1-1.5); Gamma Glutamyl Transpeptidase* 364 U/L (8-55); Total Protein* 6.2 g/dL (6.0-8.3)
[2025-01-20 08:30] VITALS: RESP 14; O2SAT 96
[2025-01-20] MEDS: hydroCHLOROthiazide 12.5 MG CAPSULE PO ×2 (09:46→12:59)
[2025-01-20] MEDS: SODIUM CHLORIDE 0.9 % (FLUSH) 10 ML SYRINGE 5 ML IVF (09:47)
[2025-01-20 10:02] LABS: INR 0.89 (0.91-1.10); Prothrombin Time 12.8 Seconds
[2025-01-20 11:21] VITALS: BP 208/98; PULSE 70; RESP 16; TEMP 36.6; O2SAT 92
[2025-01-20] MEDS: SULFA/TRIMETHOPRIM 800/160 1 TAB PO ×2 (12:59→17:40)
[2025-01-20 15:00] VITALS: O2SAT 95
--- NOTE | 2025-01-20 15:18 | P.DS_ITS ---
DS: Providers Provider Date Seen: 01/20/25 Date of admission: 01/17/25 16:23 Primary care physician: Megan Pulido PA-C Admitting Clinician: Miles Taylor MD Consults: 01/17/25 15:31 Consult to Wound Care [CONS] Routine Comment: Consulting Provider[facility] Attending Physician on discharge: Miles Taylor MD Date of Discharge: 01/20/25 DS: Diagnosis Discharge Diagnosis (1) Left leg cellulitis: Status: Acute Problem details: -rec'd vanc and zosyn. h/o of MRSA but no MRSA swab done this hospitalization. -wound culture grew Ps. aeruginosa, stenotrophomonas. final sensitivities pending but prelim is chao sensitive -discharging with home care, oral bactrim and follow-up with wound care clinic. (2) Chronic wound of extremity: Status: Acute Problem details: -shallow ulcer on posterior central aspect of left calf. -wash with sterile saline and vashe. wrap with Xeroform and Tubigrip/Kerlix. (3) Alcohol dependence: Status: Acute Problem details: -transaminitis noted; complete alcohol abstinence recommended. (4) Hypertension: Status: Acute Problem details: -intermittently compliant -started HCTZ 25mg in the hospital with rx at discharge -script for BP cuff (5) Tobacco use disorder: Status: Chronic Problem details: Declined nicotine replacment. Recommend smoking cessation (6) Discharge planning issues: Status: Acute Problem details: Patient has unstable housing though she in indicates right now she has a place to live. She also has transportation issues complicating her wound care. Continue to address these issues prior to discharge -home health consult placed DS: Summary Hospital Course Hospital Course: FINAL DIAGNOSIS/FOLLOW UP ISSUES: 1. Chronic open ulceration, left calf 2. Superimposed cellulitis to the left lower extremity below the knee 3. Chronic alcoholism, tobacco dependence, poor self-care BRIEF HOSPITAL COURSE: Patient was admitted for 4 days. Synopsis of acute inpatient issues are outlined above. Chronic medical conditions with notable findings outlined above. Her cellulitis improved and receded from initial markings. Her chronic ulceration on the left calf is slowly improving. It is clear that her lifestyle, smoking and drinking and nutrition are likely all working against her for good wound care. We discussed all of this in detail on the day of discharge. Her wound culture came back with Pseudomonas aeruginosa and another sub species. There is a small amount of Gram-positive but it cannot be isolated. We elected to stop broad-spectrum IV antibiotics and start Bactrim DS b.i.d. for a week. She is requesting discharge. I think this is appropriate. He started on hydrochlorothiazide for her blood pressure and asked her to take the prescription I am giving her for both a bedside commode and a blood pressure monitor to her local DME provider and get these picked up. I have prescribed Bactrim to her pharmacy. Were giving her plenty of wound care supplies so that she can use sterile saline and Vashe to clean her lower extremity and then pat dry with application of 0 form and Tubigrip and keep her leg elevated. She has follow-up with the wound care and her primary care this week DISCHARGE MEDICATIONS: See Reconciled list - SIGNIFICANT CHANGES: Bactrim ds b.i.d. for 1 week Hydrochlorothiazide 25 mg q.day Specific instructions to the patient and follow-up are outlined below. REVIEW OF SYSTEMS No new chest pain or dyspnea Pain controlled No voiding difficulties Tolerating diet challenge PHYSICAL EXAM: CONSTITUTIONAL: Alert, disheveled. Requesting shower. GENERAL: Well-developed and just above ideal body weight, in no respiratory distress. VITAL SIGNS: see record. HEENT: Sclerae are anicteric. No petechiae. CARDIAC: rhythm is regular. There is no S3 or rub. No harsh murmurs. Extremities show trace edema with symmetrical pulses. PULM: good air entry with no wheeze. NEURO: Speech is fluent. A brief neurologic exam is negative. SKIN: Cellulitic changes, maceration and erythema are all improving. Shallow ulcer on the left posterior calf has not really changed in size but looks healthier with good beefy red margins and no purulent discharge PSYCHIATRIC: Euthymic. DISPOSITION: Home with friends -she does state that she is going home to her house trailer. Sometime in the near future she may need to move or make financial arrangements for a new trailer. I have sent a home health referral and will ask that her PCP follow-up with any unstable housing situations and transportation that may arise Time spent on discharge 37 minutes. Time spent discussing smoking cessation with patient: more than 10 minutes Status at Discharge Functional status at discharge: uses cane/walker Overall status at discharge: patient is progressing back to baseline Time Spent with Patient Time attestation: Total time spent providing and/or coordinating discharge services: Time spent: Greater than 30 minutes Exam Const: Vital Signs, click to edit/add: Vital Signs - 24 hr 01/19/25 16:11 01/19/25 19:30 01/19/25 23:00 Temperature 98.3 F 98.3 F Pulse Rate [Pulse Oximeter] 83 81 Respiratory Rate 16 18 Blood Pressure [Le ft Arm] 175/108 H 155/91 H Pulse Oximetry 95 96 97 Oxygen Delivery Me thod Room Air Room Air Room Air 01/19/25 23:30 01/19/25 23:30 01/20/25 03:00 Temperature 98.2 F 98.6 F Pulse Rate [Pulse Oximeter] 74 74 63 Respiratory Rate 20 20 16 Blood Pressure [Le ft Arm] 201/112 H 175/96 H Pulse Oximetry 97 94 Oxygen Delivery Me thod Room Air Room Air 01/20/25 07:00 01/20/25 08:30 01/20/25 11:21 Temperature 97.7 F 98 F Pulse Rate [Pulse Oximeter] 96 70 Respiratory Rate 14 14 16 Blood Pressure [Le ft Arm] 165/100 H 208/98 H Pulse Oximetry 96 96 92 Oxygen Delivery Me thod Room Air Room Air Room Air DS: Data Data Completed and Pending Labs on day of discharge: Labs from last 24 hours 01/20/25 01/20/25 07:34 06:14 WBC 6.06 RBC 4.31 Hgb 13.8 Hct 41.6 MCV 97 MCH 32 MCHC 33 RDW Coeff of Sabino 12.7 Plt Count 470 H Neut % (Auto) 52.3 Lymph % (Auto) 29.2 Swisher % (Auto) 10.7 Eos % (Auto) 6.4 Baso % (Auto) 1.2 Neut # (Auto) 3.17 Lymph # (Auto) 1.77 Swisher # (Auto) 0.60 Eos # (Auto) 0.39 Baso # (Auto) 0.07 Abs Immat Gran (auto) 0.01 Imm/Tot Granulo (auto) 0.2 INR 0.89 L Total Bilirubin 0.4 Direct Bilirubin 0.2 GGT 364 H AST 129 H ALT 137 H Alkaline Phosphatase 234 H C-Reactive Protein 3.2 H Total Protein 6.2 Albumin 3.3 Lab Acknowledgement Test Added Discharge Plan Discharge Disposition: Home, Self-Care Date of Admission: 01/17/25 16:23 Consulting Providers: Odette Escudero; Amara Beard Primary Care Provider: Megan Pulido Condition: Improved Anticipated Discharge Date/Time: 01/20/25 15:02 Discharge Medications: New sulfamethoxazole-trimethoprim 800-160 mg Tablet 1 tab PO BID Qty: 14 0RF hydrochlorothiazide 25 mg Tablet 25 mg PO DAILY Qty: 30 0RF Continued ibuprofen 600 mg tablet 600 mg PO BID PRN Discontinued doxycycline monohydrate 100 mg capsule 100 mg PO BID cefdinir 300 mg capsule 300 mg PO BID Discharge Orders: Discharge Order (Routine); Ordered 01/20/25 Ordered By: Karina Hennessy Patient Education: Sulfamethoxazole/Trimethoprim (By mouth), Hydrochloro thiazide (By mouth) Additional Instructions: 1. use sterile water to rinse leg, vashe washes at least daily 2. wound care supplies to get you thru to next Wednesday 3. oral antibiotic, Bactrim DS, twice a day w/food for the next week 4. get a blood pressure cuff and take your blood pressure daily. I've sent the water pill, HCTZ, take this daily. 4. See DANIAL Pulido for followup. Activity Level: Activity as Tolerated Discharge Diet: Regular Follow Up Appointments: Megan Pulido PA-C [Primary Care Provider, Family Practice] - 01/22/25 3:30 pm Referral Note: At [facility] [address] [facility], [id number] Forms: TicketForEvent Info Instructions
[2025-01-20 17:00] VITALS: BP 155/100; PULSE 98; RESP 18; O2SAT 95
--- NOTE | 2025-01-20 18:03 | PC.NURSE ---
Patient alert and oriented upon initial assessment. Hypertensive. Started taking blood pressure medication today. Wound dressing removed in the morning by physician and the patient showered with the assistance of a professional nursing tutor. After this shower I washed her leg wound with Vashe, patted the leg dry, and then completed a new dressing per the order. Her leg remains red in the middle area with pink wound beds producing scant amounts of serosanguineous fluids.? MD Hennessy approved patient for discharge with a plan for social work to follow up with the patient on Wednesday to set up home cares and ensure the patient can get a commode and pressure cough for blood pressure checks. Patient appears to be at their baseline strength and mentation. Their leg continues to have infection but is significantly less inflamed than on admit. The patient has been educated on need to avoid soaking, to not use tap water for washes, and given instructions on proper technique with a bundle of supplies. Discharge completed by nurse Fang at 1630.?
--- NOTE | 2025-01-23 16:36 | PC.SOCIAL ---
Retail Sales Clerk Consult: floor worker well service received a referral for the pt on Wednesday01/22/25 for home care after she discharged from the hospital on 01/20/25. floor worker well service has reached out to the following facilities the past two days with the following results: 1. [facility]: Faxed referral on 01/22/25. Declined because they are at capacity in this area. 2. [facility]: Faxed referral on 01/23/25. Declined because they are at capacity in this area. 3. [facility]: Faxed referral on 01/23/25 and still waiting on a response. 4. [facility] Faxed referral on 01/22/25. Declined because they are at capacity in this area. 5. [facility] Faxed referral on 01/23/25. Declined because they are at capacity in this area. Social work to follow-up as needed.
--- NOTE | 2025-01-24 16:05 | PC.SOCIAL ---
[facility] called back today and are at capacity for accepting new home care referrals. Additional home care agencies called. 1. [facility] is out of their service day. 2. [facility] is out of their service unit. 3. [facility]-Has no availability and no therapies 4. [facility] is out of their service area due to staffing. 5. [facility] does not serve [place]. 6. [facility] does not serve [place]. 7. [facility] does not serve [place]. 8. [facility]-Is at capacity for staff in the [place] area. The MD was updated that home care could not be found. MD states pt. will need to just continue to follow-up with her primary and continue being treated at the [facility]. A message was left with pt. that no home care was available and to continue following up with her primary and with her appointments at the [facility].
== END 2025-01-20 16:30 | disposition home or self-care (01) | DRG 603 ==
PROVIDERS: Family Medicine; Admitting Provider Family Medicine; PCP Physician Assistant; Visit Provider Family Medicine
DX: L03.116 Cellulitis of left lower limb (principal); L97.222 Non-pressure chronic ulcer of left calf with fat layer exposed; Z59.01 Sheltered homelessness; I87.2 Venous insufficiency (chronic) (peripheral); B96.89 Other specified bacterial agents as the cause of diseases classified elsewhere; B96.5 Pseudomonas (aeruginosa) (mallei) (pseudomallei) as the cause of diseases classified elsewhere; I10 Essential (primary) hypertension; R74.01 Elevation of levels of liver transaminase levels; F17.210 Nicotine dependence, cigarettes, uncomplicated; F10.20 Alcohol dependence, uncomplicated; F43.10 Post-traumatic stress disorder, unspecified; G89.4 Chronic pain syndrome; F60.7 Dependent personality disorder; F41.0 Panic disorder [episodic paroxysmal anxiety]; Z59.82 Transportation insecurity
CPT/HCPCS: 36415; 80053; 80076; 82977; 83735; 85025; 85610; 86140; 87181; A9270; J2543; J3372; J7050

== ENCOUNTER 2025-01-31 13:27 | Outpatient (CLI) | payer MEDICAID, SELFPAY | END 2025-01-31 13:28 | disposition home or self-care (01) | LOC: WOUND 13:27 | PROVIDERS: PCP Physician Assistant; Visit Provider Surgery | DX: I87.312 Chronic venous hypertension (idiopathic) with ulcer of left lower extremity (principal); L97.222 Non-pressure chronic ulcer of left calf with fat layer exposed; L03.116 Cellulitis of left lower limb; R73.03 Prediabetes; F17.200 Nicotine dependence, unspecified, uncomplicated | CPT/HCPCS: 97597 ==

== ENCOUNTER 2025-02-07 13:48 | Outpatient (CLI) | payer MEDICAID, SELFPAY | END 2025-02-07 13:49 | disposition home or self-care (01) | LOC: WOUND 13:48 | PROVIDERS: PCP Physician Assistant; Visit Provider Surgery | DX: I87.312 Chronic venous hypertension (idiopathic) with ulcer of left lower extremity (principal); L97.222 Non-pressure chronic ulcer of left calf with fat layer exposed; F17.200 Nicotine dependence, unspecified, uncomplicated; R73.03 Prediabetes | CPT/HCPCS: G0463 ==

== ENCOUNTER 2025-02-14 14:04 | Outpatient (CLI) | payer MEDICAID, SELFPAY | END 2025-02-14 14:05 | disposition home or self-care (01) | LOC: WOUND 14:04 | PROVIDERS: PCP Physician Assistant; Visit Provider Surgery | DX: I87.312 Chronic venous hypertension (idiopathic) with ulcer of left lower extremity (principal); L97.222 Non-pressure chronic ulcer of left calf with fat layer exposed; R73.03 Prediabetes; F17.200 Nicotine dependence, unspecified, uncomplicated | CPT/HCPCS: 97597 ==

== ENCOUNTER 2025-02-21 14:01 | Outpatient (CLI) | payer MEDICAID, SELFPAY | END 2025-02-21 14:02 | disposition home or self-care (01) | PROVIDERS: PCP Physician Assistant; Visit Provider Physician Assistant | DX: I87.312 Chronic venous hypertension (idiopathic) with ulcer of left lower extremity (principal); L97.222 Non-pressure chronic ulcer of left calf with fat layer exposed; R73.03 Prediabetes; F17.200 Nicotine dependence, unspecified, uncomplicated | CPT/HCPCS: 97597 ==

== ENCOUNTER 2025-03-07 13:35 | Outpatient (CLI) | payer MEDICAID, SELFPAY | END 2025-03-07 13:36 | disposition home or self-care (01) | LOC: WOUND 13:35 | PROVIDERS: PCP Physician Assistant; Visit Provider Surgery | DX: I87.312 Chronic venous hypertension (idiopathic) with ulcer of left lower extremity (principal); R73.03 Prediabetes; L97.222 Non-pressure chronic ulcer of left calf with fat layer exposed | CPT/HCPCS: 97597 ==

== ENCOUNTER 2025-03-14 13:32 | Outpatient (CLI) | payer MEDICAID, SELFPAY | END 2025-03-14 13:33 | disposition home or self-care (01) | LOC: WOUND 13:32 | PROVIDERS: PCP Physician Assistant; Visit Provider Surgery | DX: I87.312 Chronic venous hypertension (idiopathic) with ulcer of left lower extremity (principal); L97.222 Non-pressure chronic ulcer of left calf with fat layer exposed; L03.116 Cellulitis of left lower limb; R73.03 Prediabetes; F17.200 Nicotine dependence, unspecified, uncomplicated | CPT/HCPCS: 15271; 15275; Q4121 ==

== ENCOUNTER 2025-03-21 13:32 | Outpatient (CLI) | payer MEDICAID, SELFPAY | END 2025-03-21 13:33 | disposition home or self-care (01) | LOC: WOUND 13:32 | PROVIDERS: PCP Physician Assistant; Visit Provider Surgery | DX: I87.312 Chronic venous hypertension (idiopathic) with ulcer of left lower extremity (principal); L97.222 Non-pressure chronic ulcer of left calf with fat layer exposed; R73.03 Prediabetes; L03.116 Cellulitis of left lower limb; F17.200 Nicotine dependence, unspecified, uncomplicated | CPT/HCPCS: 87070; 87186; G0463 ==

== ENCOUNTER 2025-04-18 13:40 | Outpatient (CLI) | payer MEDICAID, SELFPAY | END 2025-04-18 13:41 | disposition home or self-care (01) | LOC: WOUND 13:40 | PROVIDERS: PCP Physician Assistant; Visit Provider Physician Assistant | DX: I87.312 Chronic venous hypertension (idiopathic) with ulcer of left lower extremity (principal); L97.222 Non-pressure chronic ulcer of left calf with fat layer exposed; R73.03 Prediabetes; F10.21 Alcohol dependence, in remission; F17.200 Nicotine dependence, unspecified, uncomplicated; Z59.82 Transportation insecurity | CPT/HCPCS: 97597 ==

== ENCOUNTER 2025-04-25 13:32 | Outpatient (CLI) | payer MEDICAID, SELFPAY | END 2025-04-25 13:33 | disposition home or self-care (01) | LOC: WOUND 13:32 | PROVIDERS: PCP Physician Assistant; Visit Provider Surgery | DX: I87.312 Chronic venous hypertension (idiopathic) with ulcer of left lower extremity (principal); L97.222 Non-pressure chronic ulcer of left calf with fat layer exposed; R73.03 Prediabetes; F10.21 Alcohol dependence, in remission; F17.200 Nicotine dependence, unspecified, uncomplicated | CPT/HCPCS: G0463 ==

== ENCOUNTER 2025-05-02 13:21 | Outpatient (CLI) | payer MEDICAID, SELFPAY | END 2025-05-02 13:22 | disposition home or self-care (01) | LOC: WOUND 13:21 | PROVIDERS: PCP Physician Assistant; Visit Provider Surgery | DX: I87.312 Chronic venous hypertension (idiopathic) with ulcer of left lower extremity (principal); L97.222 Non-pressure chronic ulcer of left calf with fat layer exposed; R73.03 Prediabetes; F17.200 Nicotine dependence, unspecified, uncomplicated; F10.21 Alcohol dependence, in remission | CPT/HCPCS: 97597 ==

== ENCOUNTER 2025-05-23 13:38 | Outpatient (CLI) | payer MEDICAID, SELFPAY | END 2025-05-23 13:39 | disposition home or self-care (01) | LOC: WOUND 13:38 | PROVIDERS: PCP Physician Assistant; Visit Provider Surgery | DX: I87.312 Chronic venous hypertension (idiopathic) with ulcer of left lower extremity (principal); L97.222 Non-pressure chronic ulcer of left calf with fat layer exposed; R73.03 Prediabetes; F17.200 Nicotine dependence, unspecified, uncomplicated; F10.21 Alcohol dependence, in remission | CPT/HCPCS: 11042 ==

== ENCOUNTER 2025-05-30 13:28 | Outpatient (CLI) | payer MEDICAID, SELFPAY | END 2025-05-30 13:29 | disposition home or self-care (01) | LOC: WOUND 13:28 | PROVIDERS: PCP Physician Assistant; Visit Provider Surgery | DX: I87.312 Chronic venous hypertension (idiopathic) with ulcer of left lower extremity (principal); L97.222 Non-pressure chronic ulcer of left calf with fat layer exposed; R73.03 Prediabetes; F17.200 Nicotine dependence, unspecified, uncomplicated; F10.21 Alcohol dependence, in remission | CPT/HCPCS: 11042 ==

== ENCOUNTER 2025-06-06 13:31 | Outpatient (CLI) | payer MEDICAID, SELFPAY | END 2025-06-06 13:32 | disposition home or self-care (01) | LOC: WOUND 13:31 | PROVIDERS: PCP Physician Assistant; Visit Provider Surgery | DX: I87.312 Chronic venous hypertension (idiopathic) with ulcer of left lower extremity (principal); L97.222 Non-pressure chronic ulcer of left calf with fat layer exposed; R73.03 Prediabetes; F17.200 Nicotine dependence, unspecified, uncomplicated; F10.21 Alcohol dependence, in remission | CPT/HCPCS: 11042 ==

== ENCOUNTER 2025-06-13 13:30 | Outpatient (CLI) | payer MEDICAID, SELFPAY | END 2025-06-13 13:31 | disposition home or self-care (01) | LOC: WOUND 13:30 | PROVIDERS: PCP Physician Assistant; Visit Provider Surgery | DX: I87.312 Chronic venous hypertension (idiopathic) with ulcer of left lower extremity (principal); L97.222 Non-pressure chronic ulcer of left calf with fat layer exposed; R73.03 Prediabetes; F17.200 Nicotine dependence, unspecified, uncomplicated; F10.21 Alcohol dependence, in remission | CPT/HCPCS: G0463 ==

== ENCOUNTER 2025-06-27 13:27 | Outpatient (CLI) | payer MEDICAID, SELFPAY | END 2025-06-27 13:28 | disposition home or self-care (01) | LOC: WOUND 13:27 | PROVIDERS: PCP Physician Assistant; Visit Provider Surgery | DX: I87.312 Chronic venous hypertension (idiopathic) with ulcer of left lower extremity (principal); L97.222 Non-pressure chronic ulcer of left calf with fat layer exposed; R73.03 Prediabetes | CPT/HCPCS: 97597 ==

== ENCOUNTER 2025-07-11 13:39 | Outpatient (CLI) | payer MEDICAID, SELFPAY | END 2025-07-11 13:40 | disposition home or self-care (01) | LOC: WOUND 13:39 | PROVIDERS: PCP Physician Assistant; Visit Provider Surgery | DX: I87.312 Chronic venous hypertension (idiopathic) with ulcer of left lower extremity (principal); L97.222 Non-pressure chronic ulcer of left calf with fat layer exposed; R73.03 Prediabetes; F17.200 Nicotine dependence, unspecified, uncomplicated; F10.21 Alcohol dependence, in remission; F43.12 Post-traumatic stress disorder, chronic | CPT/HCPCS: G0463 ==